=== PATIENT | male | born 1955 | race Caucasian/White ===

== ENCOUNTER → 2021-02-18 | Outpatient (CLI) | payer OTHER ==
[~2021-02-18] MED LIST: IOHEXOL 240 MG/ML 50ML VIAL. ONE
--- NOTE | 2021-02-18 11:11 | RAD ---
INDICATION: Reason: LLQ PAIN. SCAN AT . Instructions: / History: . COMPARISON: November 2009 TECHNIQUE: Axial CT images obtained through the abdomen and pelvis without contrast. One or more of the following individualized dose reduction techniques were utilized for this examinat ion: 1. Automated exposure control; 2. Adjustment of the mA and/or kV according to patient size; 3 . Use of iterative reconstruction technique. FINDINGS: Calcific atherosclerosis. Bilateral fat-containing hernias. No intrahepatic bile duct dilation. Duodenal diverticulum. Spleen unremarkable. No hydronephrosis. Urinary bladder is partially distended. Colonic diverticulosis. No periappendiceal inflammatory changes. No dilated loops of bowel to suggest obstruction. Fat-containing umbilical hernia. Osseous demineralization. 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 Grade 2 anterolisthesis of L5 on S1 with pars defects. IMPRESSION: * No evidence of bowel obstruction or appendicitis. Electronically signed by: Jeff Greene MD (02/18/2021 11:08 AM) [id number]
== END ==
LOC: CT 09:11
PROVIDERS: ATTEND Physician Assistant
DX: K57.30 Diverticulosis of large intestine without perforation or abscess without bleeding (principal); K57.10 Diverticulosis of small intestine without perforation or abscess without bleeding; K42.9 Umbilical hernia without obstruction or gangrene; M47.817 Spondylosis without myelopathy or radiculopathy, lumbosacral region; I70.0 Atherosclerosis of aorta; N32.89 Other specified disorders of bladder; M48.07 Spinal stenosis, lumbosacral region; M43.17 Spondylolisthesis, lumbosacral region
CPT/HCPCS: 74176